=== PATIENT | female | born 1980 | race African-American/Black ===

== ENCOUNTER 2021-12-12 14:33 | Inpatient (IN) ==
[2021-12-12] MEDS ORDERED: NITROGLYCERIN SL 0.4 MG TABLET SL STA (15:00)
[2021-12-12] MEDS ORDERED: ASPIRIN CHEW 81 MG TABLET PO STA (15:00)
[2021-12-12 15:54] LABS: Basophils # 0.1 10*3/uL (0.0-0.2); Basophils % 0.4 % (0.0-0.8); Eosinophils % 0.2 % (0.00-10.9); Hematocrit 40.5 VOL% (35.7-47.0); Hemoglobin 12.8 GM/DL (12.0-16.0); Immature Granulocytes % 0.5 %; Immature Granulocytes Absolute 0.06 #; Lymphocytes # 1.8 10*3/uL (1.4-4.0); Mean Corpuscular HGB Conc 31.6 GM/DL (32-36); Mean Corpuscular Volume 77.6 FL (87-102); Mean Platelet Volume 13.2 FL (9.6-12.0); Monocytes % 3.7 % (1.7-12.7); Neutrophils % 80.2 % (38.7-73.9); Platelet Count 203 T/CUMM (130-400); Red Blood Count 5.22 MC/CUMM (3.8-5.5); Red Cell Distribution Width 17.5 % (9.3-17.3)
[2021-12-12 16:06] LABS: INR 1.2; Partial Thromboplastin Time 20.5 SECS (23.8-32.1)
[2021-12-12 16:13] LABS: Albumin 3.3 G/DL (3.4-5.0); Bilirubin,Total 0.4 MG/DL (0.20-1.00); Calcium 8.1 MG/DL (8.5-10.1); Osmolality,Calculated 282.3 MOS/KG (273-304); Potassium 3.8 MMOL/L (3.5-5.1); Total Protein 6.9 G/DL (6.4-8.2)
[2021-12-12] MEDS ORDERED: hydrALAZINE 20 MG/1 ML VIAL IV PRN (16:41)
[2021-12-12] MEDS ORDERED: carvediloL 3.125 MG TABLET PO SCH (17:00)
[2021-12-12 17:15] LABS: Hypochromia Slight; Lymphocytes 18 % (20-55); Microcytosis Slight; Segmented Neutrophils 79 % (50-85); Total Cells Counted 100
[2021-12-12 17:16] LABS: Platelet Estimate Normal
[2021-12-12] MEDS: SPIRONOLACTONE 25 MG TABLET PO SCH (17:55)
[2021-12-12] MEDS: FUROSEMIDE 40 MG/4 ML VIAL IV SCH (17:55)
[2021-12-12] MEDS: carvediloL 3.125 MG TABLET PO SCH (18:00)
[2021-12-12] MEDS ORDERED: GLUCAGON 1 MG VIAL IM PRN (18:30)
[2021-12-12] MEDS ORDERED: MAGNESIUM SULF RIDER 2 GM/50 ML PREMIX IV PRN (18:30)
[2021-12-12] MEDS ORDERED: ACETAMINOPHEN 325 MG TABLET PO PRN (18:30)
[2021-12-12] MEDS ORDERED: MORPHINE 2 MG/1 ML SYRINGE IV PRN (18:30)
[2021-12-12] MEDS ORDERED: DEXTROSE 10% 250 ML BAG IV PRN (18:49)
[2021-12-12] MEDS: ENOXAPARIN 40 MG/0.4 ML SYRINGE SUBCUT SCH (19:05)
[2021-12-12] MEDS ORDERED: MORPHINE 4 MG/1 ML VIAL ONE (20:15)
[2021-12-12] MEDS: ONDANSETRON 4 MG/2 ML VIAL IV PRN (20:26)
[2021-12-12] MEDS: SACUBITRIL/VALSARTAN 49-51 MG TABLET PO SCH (21:13)
[2021-12-13 05:00] LABS: Basophils % 0.3 % (0.0-0.8); Eosinophils % 0.2 % (0.00-10.9); Hematocrit 47.8 VOL% (35.7-47.0); Hemoglobin 14.8 GM/DL (12.0-16.0); Immature Granulocytes % 0.5 %; Immature Granulocytes Absolute 0.07 #; Lymphocytes # 2.7 10*3/uL (1.4-4.0); Lymphocytes % 19.8 % (21.3-54.2); Mean Corpuscular Volume 78.5 FL (87-102); Monocytes % 5.9 % (1.7-12.7); Neutrophils % 73.3 % (38.7-73.9); Platelet Count 277 T/CUMM (130-400); Red Blood Count 6.09 MC/CUMM (3.8-5.5); Red Cell Distribution Width 18.6 % (9.3-17.3); White Blood Count 13.6 T/CUMM (4-12)
[2021-12-13 05:21] LABS: Calcium 9.6 MG/DL (8.5-10.1); Osmolality,Calculated 274.7 MOS/KG (273-304); Potassium 2.7 MMOL/L (3.5-5.1)
[2021-12-13 05:26] LABS: Hypochromia 1+; Microcytosis 1+; Ovalocytes Few; Platelet Estimate Normal; Target Cells Slight
[2021-12-13 05:50] LABS: Risk Ratio 8.34; VLDL Cholesterol 36.4 MG/DL
[2021-12-13] MEDS ORDERED: POTASSIUM CHLORIDE 20 MEQ TABLET PO ONE (08:02)
[2021-12-13] MEDS: ASPIRIN EC 81 MG TABLET PO SCH (08:25)
[2021-12-13] MEDS: SACUBITRIL/VALSARTAN 49-51 MG TABLET PO SCH ×2 (08:25→21:04)
[2021-12-13] MEDS: SPIRONOLACTONE 25 MG TABLET PO SCH (08:25)
[2021-12-13] MEDS: carvediloL 3.125 MG TABLET PO SCH ×2 (08:26→17:29)
[2021-12-13] MEDS: FUROSEMIDE 40 MG/4 ML VIAL IV SCH (08:28)
[2021-12-13] MEDS: PANTOPRAZOLE 40 MG TABLET PO SCH (08:28)
[2021-12-13] MEDS ORDERED: NITROGLYCERIN SL 0.4 MG TABLET SL PRN (10:04)
[2021-12-13] MEDS: INSULIN REGULAR 100 UNIT/ML SUBCUT SCH ×3 (12:01→21:04)
[2021-12-13] MEDS ORDERED: SODIUM CHLORIDE 0.9% 250 ML IV ONE (12:09)
[2021-12-13] MEDS ORDERED: diphenhydrAMINE CAP 50 MG CAPSULE PO ONE (15:00)
[2021-12-13] MEDS ORDERED: DIAZEPAM 5 MG TABLET PO ONE (15:00)
[2021-12-13] MEDS ORDERED: HEPARIN/NACL 0.9% 2 UNITS/ML 2,000 UNIT/1,000 ML BAG IV ONE (15:42)
[2021-12-13] MEDS ORDERED: LIDOCAINE 1% 20 ML VIAL ONE ×2 (15:59→16:09)
[2021-12-13] MEDS ORDERED: MIDAZOLAM 2 MG/2 ML VIAL ONE (16:01)
[2021-12-13] MEDS ORDERED: fentaNYL 100 MCG/2 ML VIAL ONE (16:01)
[2021-12-13] MEDS: ROSUVASTATIN 20 MG TABLET PO SCH (21:04)
[2021-12-14 05:24] LABS: Basophils # 0.1 10*3/uL (0.0-0.2); Basophils % 0.6 % (0.0-0.8); Eosinophils % 0.2 % (0.00-10.9); Hematocrit 47.6 VOL% (35.7-47.0); Hemoglobin 14.8 GM/DL (12.0-16.0); Immature Granulocytes % 0.3 %; Immature Granulocytes Absolute 0.03 #; Lymphocytes # 2.6 10*3/uL (1.4-4.0); Lymphocytes % 25.1 % (21.3-54.2); Mean Corpuscular HGB Conc 31.1 GM/DL (32-36); Mean Corpuscular Volume 78.9 FL (87-102); Mean Platelet Volume 13.2 FL (9.6-12.0); Monocytes % 5.7 % (1.7-12.7); Neutrophils % 68.1 % (38.7-73.9); Platelet Count 229 T/CUMM (130-400); Red Blood Count 6.03 MC/CUMM (3.8-5.5); Red Cell Distribution Width 18.7 % (9.3-17.3); White Blood Count 10.5 T/CUMM (4-12)
[2021-12-14 05:34] LABS: Calcium 8.9 MG/DL (8.5-10.1); Osmolality,Calculated 279.4 MOS/KG (273-304); Potassium 3.5 MMOL/L (3.5-5.1)
[2021-12-14 05:47] LABS: Hypochromia 1+; Microcytosis 1+; Ovalocytes Few; Target Cells Slight
[2021-12-14 05:48] LABS: Platelet Estimate Normal
[2021-12-14] MEDS: PANTOPRAZOLE 40 MG TABLET PO SCH (10:07)
[2021-12-14] MEDS: SERTRALINE 50 MG TABLET PO SCH (10:07)
[2021-12-14] MEDS: ASPIRIN EC 81 MG TABLET PO SCH (10:07)
[2021-12-14] MEDS: SPIRONOLACTONE 25 MG TABLET PO SCH (10:07)
[2021-12-14] MEDS: carvediloL 3.125 MG TABLET PO SCH ×2 (10:07→17:47)
[2021-12-14] MEDS: INSULIN REGULAR 100 UNIT/ML SUBCUT SCH ×4 (10:12→20:58)
[2021-12-14 10:40] LABS: Bacteria,Urine Occasional /HPF (Few); Mucus,Urine Occasional /LPF (Occasional); RBC,Urine 2 /HPF (0-4); Squamous Epithelial Cell,Urine Occasional /HPF (0-10)
[2021-12-14 10:42] LABS: Urine Appearance Clear (Clear); Urine Color Yellow (Yellow)
[2021-12-14 10:43] LABS: Bilirubin,Urine Negative (Negative); Blood, Urine Negative (Negative); Glucose,Urine (UA) Negative (Negative); Ketones,Urine Negative (Negative); Nitrite,Urine Negative (Negative); Protein,Urine Negative; Urine Specific Gravity 1.015 (1.001-1.035); Urine Urobilinogen 0.2 EU/DL (<2.0); Urine pH 5.5 (4.5-8.0)
[2021-12-14 12:06] LABS: Albumin 3.1 G/DL (3.4-5.0); Bilirubin,Total 0.4 MG/DL (0.20-1.00); Osmolality,Calculated 281.3 MOS/KG (273-304); Potassium 3.6 MMOL/L (3.5-5.1)
[2021-12-14] MEDS: ENOXAPARIN 40 MG/0.4 ML SYRINGE SUBCUT SCH (17:48)
[2021-12-14] MEDS: ROSUVASTATIN 20 MG TABLET PO SCH (20:59)
[2021-12-15 04:57] LABS: Basophils # 0.1 10*3/uL (0.0-0.2); Basophils % 0.6 % (0.0-0.8); Eosinophils % 0.3 % (0.00-10.9); Hematocrit 39.9 VOL% (35.7-47.0); Hemoglobin 12.2 GM/DL (12.0-16.0); Immature Granulocytes % 0.3 %; Immature Granulocytes Absolute 0.03 #; Lymphocytes # 3.4 10*3/uL (1.4-4.0); Mean Corpuscular HGB Conc 30.6 GM/DL (32-36); Mean Platelet Volume 12.6 FL (9.6-12.0); Monocytes % 6.6 % (1.7-12.7); Neutrophils % 59.2 % (38.7-73.9); Platelet Count 206 T/CUMM (130-400); Red Blood Count 5.05 MC/CUMM (3.8-5.5); Red Cell Distribution Width 17.4 % (9.3-17.3); White Blood Count 10.3 T/CUMM (4-12)
[2021-12-15 05:22] LABS: Bilirubin,Total 0.8 MG/DL (0.20-1.00); Calcium 8.5 MG/DL (8.5-10.1); Osmolality,Calculated 279.4 MOS/KG (273-304); Potassium 3.9 MMOL/L (3.5-5.1); Total Protein 6.5 G/DL (6.4-8.2)
[2021-12-15] MEDS: INSULIN REGULAR 100 UNIT/ML SUBCUT SCH ×4 (08:32→21:07)
[2021-12-15] MEDS: SERTRALINE 50 MG TABLET PO SCH (09:58)
[2021-12-15] MEDS: carvediloL 3.125 MG TABLET PO SCH ×2 (09:58→18:01)
[2021-12-15] MEDS: PANTOPRAZOLE 40 MG TABLET PO SCH (09:58)
[2021-12-15] MEDS: ASPIRIN EC 81 MG TABLET PO SCH (09:58)
[2021-12-15] MEDS: SPIRONOLACTONE 25 MG TABLET PO SCH (09:58)
[2021-12-15] MEDS: ONDANSETRON 4 MG/2 ML VIAL IV PRN (14:36)
[2021-12-15] MEDS: ENOXAPARIN 40 MG/0.4 ML SYRINGE SUBCUT SCH (18:01)
[2021-12-15] MEDS: ROSUVASTATIN 20 MG TABLET PO SCH (21:07)
[2021-12-16 05:23] LABS: Basophils # 0.1 10*3/uL (0.0-0.2); Basophils % 0.5 % (0.0-0.8); Eosinophils % 0.2 % (0.00-10.9); Hematocrit 37.6 VOL% (35.7-47.0); Hemoglobin 11.7 GM/DL (12.0-16.0); Immature Granulocytes % 0.4 %; Immature Granulocytes Absolute 0.04 #; Lymphocytes # 3.5 10*3/uL (1.4-4.0); Lymphocytes % 32.2 % (21.3-54.2); Mean Corpuscular HGB Conc 31.1 GM/DL (32-36); Mean Platelet Volume 13.5 FL (9.6-12.0); Monocytes % 6.2 % (1.7-12.7); Neutrophils % 60.5 % (38.7-73.9); Platelet Count 163 T/CUMM (130-400); Red Blood Count 4.82 MC/CUMM (3.8-5.5); Red Cell Distribution Width 17.2 % (9.3-17.3); White Blood Count 10.8 T/CUMM (4-12)
[2021-12-16 05:59] LABS: Platelet Estimate Normal
[2021-12-16 06:00] LABS: Anisocytosis 1+
[2021-12-16 06:05] LABS: Calcium 8.8 MG/DL (8.5-10.1); Osmolality,Calculated 273.7 MOS/KG (273-304); Potassium 3.7 MMOL/L (3.5-5.1)
[2021-12-16] MEDS: INSULIN REGULAR 100 UNIT/ML SUBCUT SCH ×4 (07:56→20:50)
[2021-12-16] MEDS: ASPIRIN EC 81 MG TABLET PO SCH (09:25)
[2021-12-16] MEDS: metFORMIN 500 MG TABLET PO SCH (09:25)
[2021-12-16] MEDS: SERTRALINE 50 MG TABLET PO SCH (09:25)
[2021-12-16] MEDS: PANTOPRAZOLE 40 MG TABLET PO SCH (09:26)
[2021-12-16] MEDS: SPIRONOLACTONE 25 MG TABLET PO SCH (09:26)
[2021-12-16] MEDS: carvediloL 3.125 MG TABLET PO SCH ×2 (09:26→17:00)
[2021-12-16] MEDS: ONDANSETRON 4 MG/2 ML VIAL IV PRN (17:00)
[2021-12-16] MEDS: ENOXAPARIN 40 MG/0.4 ML SYRINGE SUBCUT SCH (18:52)
[2021-12-16] MEDS: ROSUVASTATIN 20 MG TABLET PO SCH (20:48)
[2021-12-16] MEDS: CALCIUM CARBONATE CHEW 500 MG TABLET PO PRN (20:48)
[2021-12-17 05:11] LABS: Basophils # 0.1 10*3/uL (0.0-0.2); Basophils % 0.5 % (0.0-0.8); Eosinophils % 0.3 % (0.00-10.9); Hematocrit 35.2 VOL% (35.7-47.0); Immature Granulocytes % 0.5 %; Immature Granulocytes Absolute 0.05 #; Lymphocytes # 3.8 10*3/uL (1.4-4.0); Lymphocytes % 34.5 % (21.3-54.2); Mean Corpuscular HGB Conc 31.3 GM/DL (32-36); Mean Corpuscular Volume 78.4 FL (87-102); Mean Platelet Volume 14.4 FL (9.6-12.0); Monocytes % 6.2 % (1.7-12.7); Platelet Count 178 T/CUMM (130-400); Red Blood Count 4.49 MC/CUMM (3.8-5.5); Red Cell Distribution Width 17.1 % (9.3-17.3)
[2021-12-17 05:21] LABS: Osmolality,Calculated 267.2 MOS/KG (273-304); Potassium 3.7 MMOL/L (3.5-5.1)
[2021-12-17] MEDS: INSULIN REGULAR 100 UNIT/ML SUBCUT SCH ×4 (08:43→20:07)
[2021-12-17] MEDS: SPIRONOLACTONE 25 MG TABLET PO SCH (09:16)
[2021-12-17] MEDS: PANTOPRAZOLE 40 MG TABLET PO SCH (09:16)
[2021-12-17] MEDS: carvediloL 3.125 MG TABLET PO SCH ×2 (09:16→17:56)
[2021-12-17] MEDS: SERTRALINE 50 MG TABLET PO SCH (09:16)
[2021-12-17] MEDS: ASPIRIN EC 81 MG TABLET PO SCH (09:16)
[2021-12-17] MEDS: metFORMIN 500 MG TABLET PO SCH (09:21)
[2021-12-17] MEDS: ENOXAPARIN 40 MG/0.4 ML SYRINGE SUBCUT SCH (17:55)
[2021-12-17] MEDS: ROSUVASTATIN 20 MG TABLET PO SCH (20:38)
[2021-12-17] MEDS: CALCIUM CARBONATE CHEW 500 MG TABLET PO PRN (20:58)
[2021-12-18 05:10] LABS: Basophils # 0.1 10*3/uL (0.0-0.2); Basophils % 0.6 % (0.0-0.8); Eosinophils % 0.3 % (0.00-10.9); Hemoglobin 10.7 GM/DL (12.0-16.0); Immature Granulocytes % 0.3 %; Immature Granulocytes Absolute 0.03 #; Lymphocytes # 3.4 10*3/uL (1.4-4.0); Lymphocytes % 35.1 % (21.3-54.2); Mean Corpuscular HGB Conc 31.5 GM/DL (32-36); Mean Corpuscular Volume 78.7 FL (87-102); Monocytes % 5.4 % (1.7-12.7); Neutrophils % 58.3 % (38.7-73.9); Platelet Count 167 T/CUMM (130-400); Red Blood Count 4.32 MC/CUMM (3.8-5.5); Red Cell Distribution Width 17.1 % (9.3-17.3); White Blood Count 9.8 T/CUMM (4-12)
[2021-12-18 05:23] LABS: Osmolality,Calculated 267.2 MOS/KG (273-304)
[2021-12-18] MEDS: INSULIN REGULAR 100 UNIT/ML SUBCUT SCH ×4 (08:18→21:33)
[2021-12-18] MEDS: SERTRALINE 50 MG TABLET PO SCH (08:31)
[2021-12-18] MEDS: PANTOPRAZOLE 40 MG TABLET PO SCH (08:32)
[2021-12-18] MEDS: carvediloL 3.125 MG TABLET PO SCH ×2 (08:32→17:30)
[2021-12-18] MEDS: metFORMIN 500 MG TABLET PO SCH (08:32)
[2021-12-18] MEDS: SPIRONOLACTONE 25 MG TABLET PO SCH (08:32)
[2021-12-18] MEDS: ASPIRIN EC 81 MG TABLET PO SCH (08:32)
[2021-12-18] MEDS: CALCIUM CARBONATE CHEW 500 MG TABLET PO PRN (14:45)
[2021-12-18] MEDS: ENOXAPARIN 40 MG/0.4 ML SYRINGE SUBCUT SCH (17:32)
[2021-12-18] MEDS: ROSUVASTATIN 20 MG TABLET PO SCH (21:58)
[2021-12-19 05:10] LABS: Basophils # 0.1 10*3/uL (0.0-0.2); Basophils % 0.6 % (0.0-0.8); Eosinophils % 0.2 % (0.00-10.9); Hemoglobin 10.6 GM/DL (12.0-16.0); Immature Granulocytes % 0.3 %; Immature Granulocytes Absolute 0.03 #; Lymphocytes # 3.1 10*3/uL (1.4-4.0); Lymphocytes % 35.3 % (21.3-54.2); Mean Corpuscular HGB Conc 31.2 GM/DL (32-36); Mean Corpuscular Volume 77.8 FL (87-102); Mean Platelet Volume 12.8 FL (9.6-12.0); Monocytes % 5.8 % (1.7-12.7); Neutrophils % 57.8 % (38.7-73.9); Platelet Count 204 T/CUMM (130-400); Red Blood Count 4.37 MC/CUMM (3.8-5.5); White Blood Count 8.7 T/CUMM (4-12)
[2021-12-19 05:29] LABS: Calcium 9.3 MG/DL (8.5-10.1); Hypochromia 1+; Osmolality,Calculated 268.1 MOS/KG (273-304)
[2021-12-19 05:30] LABS: Microcytosis 1+; Ovalocytes Slight; Platelet Estimate Normal
[2021-12-19] MEDS: INSULIN REGULAR 100 UNIT/ML SUBCUT SCH ×3 (08:36→16:19)
[2021-12-19] MEDS ORDERED: DAPAGLIFLOZIN 10 MG TABLET PO SCH (09:00)
[2021-12-19] MEDS ORDERED: SACUBITRIL/VALSARTAN 49-51 MG TABLET PO SCH (09:00)
[2021-12-19] MEDS: ASPIRIN EC 81 MG TABLET PO SCH (09:11)
[2021-12-19] MEDS: SERTRALINE 50 MG TABLET PO SCH (09:12)
[2021-12-19] MEDS: SPIRONOLACTONE 25 MG TABLET PO SCH (09:12)
[2021-12-19] MEDS: carvediloL 3.125 MG TABLET PO SCH (09:12)
[2021-12-19] MEDS: PANTOPRAZOLE 40 MG TABLET PO SCH (09:12)
[2021-12-19] MEDS ORDERED: MAGNESIUM SULF RIDER 2 GM/50 ML PREMIX IV ONE (12:02)
[2021-12-19 16:08] VITALS: BP 96/59
== END 2021-12-19 16:41 | disposition home or self-care (01) | DRG 280 ==
LOC: N.ED 14:33 → N.EDINP 14:33 → SUATTDRO 18:47 → N.TELEN 21:15 → SUATTDRO 12-13 13:17
PROVIDERS: ADMIT Internal Medicine; ATTEND Internal Medicine